=== PATIENT | female | born 1980 | race Caucasian/White ===

== ENCOUNTER 2021-08-13 13:22 | Inpatient (IN) ==
[2021-08-13] MEDS ORDERED: LORazepam 1 MG/2 ML VIAL IV STA ×2 (13:28→13:57)
[2021-08-13] MEDS ORDERED: LORazepam 2 MG/4 ML VIAL ONE (13:30)
[2021-08-13] MEDS ORDERED: DC ALL ANTICOAGULANTS STA (13:33)
[2021-08-13] MEDS ORDERED: PRIMARY PLUMSET, PE LINED TUBING, 113 IN, NON-DEHP (2260-0500) IV STA (13:33)
[2021-08-13] MEDS ORDERED: SODIUM CHLORIDE 0.9% 50 ML BAG IV STA (13:33)
[2021-08-13] MEDS ORDERED: ALTEPLASE, RECOMBINANT 100 MG in EMPTY BAG 0 ML IV STA (13:33)
[2021-08-13] MEDS ORDERED: RAPID SEQUENCE INDUCTION BAG ONE ×2 (13:35→14:57)
[2021-08-13] MEDS ORDERED: MoRPHine SULFATE 10 MG/ML CARP/VIAL ONE (13:43)
--- NOTE | 2021-08-13 13:47 | XRay Report ---
SINGLE VIEW CHEST CLINICAL HISTORY: Dyspnea. FINDINGS: An AP, portable, upright chest radiograph is compared to study dated 08/30/2008. The cardio mediastinal silhouette is unremarkable. The lungs and pleural spaces are clear. No pneumothorax is se en. The bony thorax is grossly intact. IMPRESSION: No active disease in the chest. ACT 112: Negative or not required by law. Electronically signed by: Dion Rojas M.D. 08/13/2021 1:46 PM
[2021-08-13] MEDS ORDERED: ALTEPLASE BOLUS IV ONE (13:48)
[2021-08-13] MEDS ORDERED: ICU PROTOCOL FOR HYPERGLYCEMIA PRN (13:55)
[2021-08-13] MEDS ORDERED: fentaNYL citrate 100 MCG/2 ML VIAL IV STA ×2 (13:57→14:16)
[2021-08-13] MEDS ORDERED: NORMOSOL-R 1,000 ML IV SCH (14:00)
--- NOTE | 2021-08-13 14:01 | Emergency Department Note ---
Impression & Plan Acute respiratory distress, Pulmonary emboli, DVT (deep venous thrombosis), Hypoxia, Tachycardia ED Provider Note NAME: HOLDEN SARABIA AGE: 40 SEX: F : 1980 ARRIVES VIA: Ambulance INFORMANT: [Patient][ems, family] ED PROVIDER(S): [Dion Cm MD] CHIEF COMPLAINT: Short of breath HISTORY OF PRESENT ILLNESS: The patient is a 40-year-old female who presents in respiratory distress. She suddenly, around 30 or so minutes ago became very short of breath. This occurred when she was in the shower. The patient is on control pills and just returned yesterday from [place]. She drove. Patient was experiencing some left lower leg pain today before her sudden shortness of breath. The patient has been in baseline health. She has no heart disease or lung disease. She has never had a DVT or PE. She has not noticed fever, cough or congestion. As per EMS, the patient's O2 saturation was in the 70s despite facemask O2. No further history obtainable as the patient is in quite a bit of distress. REVIEW OF SYSTEMS: Unobtainable given her distress PMHx/PSHx: See Below SOCIAL HISTORY: See Below. PHYSICAL EXAM: GENERAL: Patient is in significant respiratory distress. Anxious. HEENT: No acute trauma, normocephalic atraumatic, mucous membranes moist, no nasal congestion, no scleral icterus. NECK: No stridor, no adenopathy, no meningismus, trachea is midline. LUNGS: Increased respiratory rate, significant respiratory distress noted. Lung sounds are clear, lung sounds are equal, no wheezing or rhonchi. HEART: Tachycardic, regular rhythm, no murmurs. ABDOMEN: Soft, nontender, bowel sounds positive, no hernias, no peritonitis. EXTREMITIES: Mild bilateral pedal edema, full range of motion of all the joints without pain or difficulty, no signs for acute trauma. NEUROLOGIC: Oriented x 3, no acute motor or sensory deficits, no focal weakness. SKIN: No rash, no jaundice, moderate diaphoresis. Pale. DIFFERENTIAL DIAGNOSIS: Reactive airway disease, COVID-19, pneumonia, pneumothorax, COPD, CHF, infection, cardiac ischemia, pulmonary embolism, DVT, dysrhythmia, bronchitis, musculoskeletal, gastrointestinal, as well as other pathologies. EMERGENCY DEPARTMENT COURSE/PROCEDURES: ECG: Indication was shortness of breath. The ECG shows a sinus tachycardia with a rate of 144. There is diffuse ST depression and some T wave flattening and inversion. There is an incomplete right bundle branch block noted. No ST elevation, no PVCs. The QTc is 424. Continuous Cardiac Monitoring: An order was placed for continuous cardiac monitoring. The monitor shows a rate of 152 with sinus tachycardia. Critical Care Note: I have personally spent 67 minutes of critical care time in the direct management of this patient. This includes bedside care, interpretation of diagnostic studies, and testing, discussion with consultants, patient, and family members, and other required patient management activities. This 67 minutes is in excess of all separately billable procedures. MEDICAL DECISION MAKING: There is a moderate leukocytosis which could be consistent with infection or just the stress of her presentation. There was a normal hemoglobin and platelet count. CO2 was somewhat low, likely from hyperventilation. Creatinine was 1.38, mildly elevated. No worrisome liver enzyme elevation. ECG showed a sinus tachycardia with diffuse ST and T wave change. No ST elevation. Cardiac troponin testing x1 is elevated consistent with cardiac strain/injury. Covid testing returned negative. Chest x-ray did not show CHF, pneumonia or pneumothorax. Bilateral lower extremity ultrasound showed a left leg DVT. The patient presented in marked respiratory distress. Based on her history, based on her exam, I was concerned for massive pulmonary embolus. The patient was unable to undergo any testing to confirm PE. I quickly discussed the case with the bottom sprayer on-call. The decision was made to administer IV TPA over 2 hours. The TPA was ordered and given. The patient was quite anxious. She responded nicely to IV Ativan, a total of 2 mg was given. She received IV fentanyl, 100 mcg in total. With the administration of the Ativan and fentanyl, her tachypnea improved and she seemed more comfortable. She was initially ordered for BiPAP however, she could not tolerate the mask. She was eventually just maintained on facemask O2 supplementation. The patient was ordered for IV saline, 1 L. The patient has made significant improvement with the above treatment. Her color has improved. Her heart rate has decreased. She is less short of breath and looks much more comfortable. She is much more relaxed. The patient is being transferred to the ICU. I did speak with her, her family, her boyfriend about my concerns and findings. They are aware of the need for the TPA and the need for hospitalization. I did speak with the on-call hospitalist. Case management was involved. Past Med/Surg History Medical History Depression Multiple renal calculi UTI (urinary tract infection) Surgical History H/O lithotripsy H/O wisdom tooth extraction Family History (Updated 08/13/21 @ 14:54 by Naina Beckman PA-C) Other Diabetes Social History Smoking Status: Former smoker Smoking End Date: 2010; Second Hand Exposure: Yes; Hx Alcohol Use: Yes Alcohol type: wine and hard liquor Hx Substance Use: No Preferred Language: Lithuanian Communication Ability: Effective Plant Anatomy Teacher Required: No Beliefs That Will Affect Care: None Current Living Situation: Significant Other Other Information That Helps Us Care for You: No Feels Safe at Home: Yes Safety Concerns: Feels Safe At This Time Allergies Allergies Allergy/AdvReac Type Severity Reaction Status Date / Time morphine Allergy Rash Verified 08/13/21 14:29 Home Meds Home Medications Medication Instructions Recorded Confirmed etonogestrel 0.12 mg-ethinyl 1 vag ring VAGINAL UD 08/13/21 08/13/21 estradiol 0.015 mg/24 hr vaginal ring Results & Data (ED) Vital Signs Vital Signs - 24 hr 08/13/21 13:26 08/13/21 13:27 08/13/21 13:30 Pulse Rate 151 H 155 H 154 H Pulse Rate from SpO2 Sensor 160 H Respiratory Rate 40 H Respiratory Effort / Characteristics Labored Respiratory Depth Retractive Respiratory Pattern Tachypnea Pulse Oximetry 81 L Oxygen Delivery Method Non-rebreather Oxygen Flow Rate 15 Fraction of Inspired Oxygen Sepsis New/Unexplained Change in Mental Status N/A Sepsis Action Taken by Nursing No Action Required 08/13/21 13:35 08/13/21 13:40 08/13/21 13:50 Pulse Rate 145 H 153 H 146 H Pulse Rate from SpO2 Sensor 153 H 122 H Respiratory Rate 38 H 33 H Respiratory Effort / Characteristics Spontaneous Accessory Muscle Use Labored Short of Breath Respiratory Depth Respiratory Pattern Pulse Oximetry 98 85 L 85 L Oxygen Delivery Method Non-rebreather Oxygen Flow Rate Fraction of Inspired Oxygen 100 Sepsis New/Unexplained Change in Mental Status Sepsis Action Taken by Nursing 08/13/21 14:00 08/13/21 14:10 Pulse Rate 147 H 144 H Pulse Rate from SpO2 Sensor 148 H 144 H Respiratory Rate 30 H 34 H Respiratory Effort / Characteristics Respiratory Depth Respiratory Pattern Pulse Oximetry 97 89 L Oxygen Delivery Method Oxygen Flow Rate Fraction of Inspired Oxygen Sepsis New/Unexplained Change in Mental Status Sepsis Action Taken by [facility] Medications Current Medication List: was personally reviewed by me Laboratory Data Attestation: I reviewed the patient's lab results. Result diagrams: 08/13/21 13:15 08/13/21 13:15 Lab Results 08/13/21 08/13/21 08/13/21 Range/Units 13:15 13:15 13:15 WBC 14.93 H (4.8-10.8) K/uL RBC 4.29 (4.2-5.4) M/uL Hgb 13.4 (12.0-16.0) g/dL Hct 40.8 (37-47) % MCV 95.1 (80-100) fL MCH 31.2 (25-34) pg MCHC 32.8 (32-36) g/dL RDW Std Deviation 47.8 H (36.4-46.3) fL RDW Coeff of José Luis 13.7 (11.5-14.5) % Plt Count 272 (130-400) K/uL MPV 9.9 (7.4-10.4) fL PT Cancelled INR Cancelled APTT Cancelled PTT Ratio Cancelled Sodium 139 (136-145) mmol/L Potassium 3.5 (3.5-5.1) mmol/L Chloride 105 (98-107) mmol/L Carbon Dioxide 19 L (21-32) mmol/L Anion Gap 15.0 H (3-11) BUN 11 (7-18) mg/dl Creatinine 1.38 H (0.6-1.2) mg/dl Est Cr Clr Drug Dosing 74.1 ml/min Est GFR ( Amer) 56.1 ml/min Est GFR (Non-Af Amer) 48.4 ml/min BUN/Creatinine Ratio 7.6 L (10-20) Glucose 213 H (70-99) mg/dl Calcium 8.7 (8.5-10.1) mg/dl Magnesium 2.2 (1.8-2.4) mg/dl Total Bilirubin 0.5 (0.2-1) mg/dl AST 10 L (15-37) U/L ALT 13 (12-78) U/L Alkaline Phosphatase 83 (45-117) U/L Troponin I 0.443 H* (0-0.045) ng/ml Total Protein 7.8 (6.4-8.2) gm/dl Albumin 2.9 L (3.4-5.0) gm/dl Globulin 4.9 H (2.5-4.0) gm/dl Albumin/Globulin Ratio 0.6 L (0.9-2) Administered Medications Discontinued Medications Fentanyl Citrate (Fentanyl Citrate 100 Mcg/2 Ml Vial) 50 mcg IV NOW STA Stop: 08/13/21 13:58 Last Admin: 08/13/21 13:47 Dose: 50 mcg Documented by: [id number] Fentanyl Citrate (Fentanyl Citrate 100 Mcg/2 Ml Vial) 50 mcg IV NOW STA Stop: 08/13/21 14:17 Last Admin: 08/13/21 13:55 Dose: 50 mcg Documented by: [id number] Alteplase, Recombinant 100 mg/ (EMPTY BAG) 100 mls @ 50 mls/hr IV NOW STA; Protocol Stop: 08/13/21 15:32 Last Admin: 08/13/21 13:48 Dose: 50 mls/hr Documented by: [id number] Cosigned by: [id number] Lorazepam (Ativan) 1 mg in 2 mls @ 2 mls/min IV NOW STA Stop: 08/13/21 13:29 Last Admin: 08/13/21 13:40 Dose: 1 mls/min Documented by: [id number] Lorazepam (Ativan) 1 mg in 2 mls @ 2 mls/min IV NOW STA Stop: 08/13/21 13:58 Last Admin: 08/13/21 14:50 Dose: Not Given Documented by: [id number] Parenteral Electrolytes (Normosol-R) 1,000 mls @ 80 mls/hr IV .[id number] [facility] Stop: 09/12/21 13:59 Last Admin: 08/13/21 16:15 Dose: Not Given Documented by: [id number] Sodium Chloride (Nss 1000ml) 1,000 mls @ 999 mls/hr IV .[id number] ONE Stop: 08/13/21 15:13 Last Admin: 08/13/21 16:16 Dose: 999 mls/hr Documented by: [id number] Lorazepam (Lorazepam 2 Mg/4 Ml Vial) Confirm Administered Dose 2 mg .ROUTE .STK-MED ONE Stop: 08/13/21 13:31 Last Increment: 08/13/21 13:51 Dose: 1 mg Documented by: [id number] Miscellaneous (Rapid Sequence Induction Bag) Confirm Administered Dose 1 ea .ROUTE .STK-MED ONE Stop: 08/13/21 13:36 Last Admin: 08/13/21 14:49 Dose: Not Given Documented by: [id number] Miscellaneous (Rapid Sequence Induction Bag) Confirm Administered Dose 1 ea .ROUTE .STK-MED ONE Stop: 08/13/21 14:58 Last Admin: 08/13/21 16:16 Dose: Not Given Documented by: [id number] Miscellaneous Information (Dc All Anticoagulants ) 1 ea N/A NOW STA Stop: 08/13/21 13:34 Last Admin: 08/13/21 14:48 Dose: 1 ea Documented by: [id number] Morphine Sulfate (Morphine Sulfate 10 Mg/Ml Carp/Vial) Confirm Administered Dose 10 mg .ROUTE .STK-MED ONE Stop: 08/13/21 13:44 Last Admin: 08/13/21 13:59 Dose: Not Given Documented by: [id number] Sodium Chloride (Sodium Chloride 0.9% 50 Ml Bag) 50 ml IV NOW STA Stop: 08/13/21 13:34 Last Admin: 08/13/21 14:00 Dose: 50 ml Documented by: [id number] Imaging Data Radiologist's Impression: Venous Doppler Study 08/13/21 00:00 ULTRASOUND BILATERAL LOWER EXTREMITY VENOUS CLINICAL HISTORY: Dyspnea. Leg pain COMPARISON STUDY: No priors. TECHNIQUE: Real-time, grayscale, and color Doppler sonography of the deep veins of the right and left lower extremity was performed from the inguinal crease to the popliteal fossa. Compression and augmentation were utilized. The calf vessels were not assessed due to patient instability. FINDINGS: Right lower extremity: There is no sonographic evidence of above knee deep venous thrombosis in the right lower extremity. The common femoral, superficial femoral, and popliteal veins are patent and normally compressible. Left lower extremity: Occlusive deep venous thrombosis is seen within the distal superficial femoral vein and the popliteal vein. The common femoral vein and the proximal to mid portions of the superficial femoral vein are patent and normally compressible. The profunda femoris vein at the junction with the common femoral vein is clear. IMPRESSION: 1. There is occlusive deep venous thrombosis identified in the left lower extremity within the distal superficial femoral and popliteal veins. 2. No above knee deep venous thrombosis is seen in the right lower extremity. 3. The calf vessels could not be assessed due to patient instability. ACT 112: Negative or not required by law. Electronically signed by: Dion Rojas M.D. 08/13/2021 2:41 PM Chest X-Ray 08/13/21 13:42 SINGLE VIEW CHEST CLINICAL HISTORY: Dyspnea. FINDINGS: An AP, portable, upright chest radiograph is compared to study dated 08/30/2008. The cardiomediastinal silhouette is unremarkable. The lungs and pleural spaces are clear. No pneumothorax is seen. The bony thorax is grossly intact. IMPRESSION: No active disease in the chest. ACT 112: Negative or not required by law. Electronically signed by: Dion Rojas M.D. 08/13/2021 1:46 PM Discharge Plan Visit Data Chief Complaint: Respiratory Distress ED Provider: Dion Cm Discharge Problem: Acute respiratory distress, Pulmonary emboli, DVT (deep venous thrombosis), Hypoxia, Tachycardia Patient Disposition: Admitted As Inpatient Condition: Serious Discharge Instructions Interventions: ED Discharge Assessment Last Done: 08/13/21 15:00
--- NOTE | 2021-08-13 14:08 | Critical Care Consultation ---
Date of Consultation August 13, 2021 Assessment & Plan (1) Acute hypoxemic respiratory failure: Reason Critically Ill: 40-year-old female with respiratory distress from presumptive pulmonary embolism PLAN: Resp: Acute hypoxic respiratory failure -Improved status post 100 mg TPA -Echo pending -Bilateral venous duplex ultrasound CV: Tachycardia -Compensatory mechanism will not treat at this time Fluids/Renal: Electrolyte protocol ID: COVID-19 screen pending GI/Nutrition: Obesity: BMI 43 Heme: Status post TPA -Heparin per protocol DVT prophylaxis: Heparin infusion Endocrine: ICU hyperglycemia protocol Vascular access: Peripheral IVs Code Status: Full code Disposition: ICU (2) Obesity, Class III, BMI 40-49.9 (morbid obesity): Supervising Physician Co-Signing Physician Notes I have personally spent 40 minutes of critical care time in the direct management of this patient. This is a life/limb threatening event. This includes time spent evaluating patient, direct bedside care, chart review, placing orders, interpretation of diagnostic studies, discussion with consultants, patient, and/or family members regarding treatment decisions, as well as other required patient management activities. This time is exclusive of all separately billable procedures, and teaching time and separate from and in addition to any other critical care service time. History of Present Illness Reason for Consultation: Respiratory distress Requesting Physician: Dion Cm MD Attending Physician: Grey bellamy MD History of Present Illness History is obtained from emergency medicine provider given patient extremitas. patient is a 40-year-old female with a reported history of oral control pills who presents with acute shortness of breath. There is no history of DVT however the patient has recently returned from the [place], had lower leg swelling and pain, chest x-ray was reported as normal and was profoundly tachycardic and hypoxic on clinical examination. 100 mg of TPA was administered in the emergency department. Allergies Allergy/AdvReac Type Severity Reaction Status Date / Time morphine Allergy Rash Verified 07/09/18 04:00 Home Medications Medication Instructions Recorded Confirmed Type ciprofloxacin HCl 500 mg tablet 500 mg PO BID #14 tab 07/09/18 Rx hydrocodone 5 mg-acetaminophen 325 1 tab PO Q6H PRN #20 tab 07/09/18 Rx mg tablet norgestimate 0.25 mg-ethinyl 1 tab PO DAILY 07/09/18 07/09/18 History estradiol 35 mcg tablet (Ortho-Cyclen (28)) Patient History Medical History Multiple renal calculi UTI (urinary tract infection) Family History Other No significant family history Social History Smoking Status: Never smoker Feels Safe at Home: Yes Physical Exam Physical Exam: General: Alert. In obvious extremitas. Skin: Warm, diaphoretic, Head: Atraumatic Ears, nose, mouth and throat: airway patent Cardiovascular: Tachycardic Respiratory: Obvious respiratory distress Gastrointestinal: Non distended Musculoskeletal: No deformity Results & Data Results & Data ([facility]) Vital Signs (Past 12 Hours) Vital Signs Pulse Resp 08/13/21 13:26 151 H 40 H Laboratory Results 08/13/21 08/13/21 08/13/21 Range/Units 13:15 13:15 13:15 WBC 14.93 H (4.8-10.8) K/uL RBC 4.29 (4.2-5.4) M/uL Hgb 13.4 (12.0-16.0) g/dL Hct 40.8 (37-47) % MCV 95.1 (80-100) fL MCH 31.2 (25-34) pg MCHC 32.8 (32-36) g/dL RDW Std Deviation 47.8 H (36.4-46.3) fL RDW Coeff of José Luis 13.7 (11.5-14.5) % Plt Count 272 (130-400) K/uL MPV 9.9 (7.4-10.4) fL PT Cancelled INR Cancelled APTT Cancelled PTT Ratio Cancelled Sodium Pending Potassium Pending Chloride Pending Carbon Dioxide Pending Anion Gap Pending BUN Pending Creatinine Pending Est Cr Clr Drug Dosing Pending Est GFR ( Amer) Pending Est GFR (Non-Af Amer) Pending BUN/Creatinine Ratio Pending Glucose Pending Calcium Pending Magnesium Pending Total Bilirubin Pending AST Pending ALT Pending Alkaline Phosphatase Pending Troponin I Pending Total Protein Pending Albumin Pending Globulin Pending Albumin/Globulin Ratio Pending Coding Level of Care Code Critical Care 1st 30-74 mins Diagnoses Acute hypoxemic respiratory failure J96.01 Obesity, Class III, BMI 40-49.9 (morbid obesity) E66.01
[2021-08-13] MEDS ORDERED: SODIUM CHLORIDE 0.9% 1000ML 1,000 ML IV ONE (14:13)
[2021-08-13 14:15] LABS: Hematocrit (blood only) 40.8 % (37-47); Hemoglobin 13.4 g/dL (12.0-16.0); Mean Corpuscular Hemoglobin 31.2 pg (25-34); Mean Corpuscular Hgb Conc 32.8 g/dL (32-36); Mean Corpuscular Volume 95.1 fL (80-100); Mean Platelet Volume 9.9 fL (7.4-10.4); Platelet Count 272 K/uL (130-400); RDW Coefficient of Variation 13.7 % (11.5-14.5); RDW Standard Deviation 47.8 fL (36.4-46.3); Red Blood Count 4.29 M/uL (4.2-5.4); White Blood Count 14.93 K/uL (4.8-10.8)
[2021-08-13 14:30] LABS: Albumin Level 2.9 gm/dl (3.4-5.0); BUN Creatinine Ratio 7.6 (10-20); Calcium 8.7 mg/dl (8.5-10.1); Creatinine Clr Calc Pharmacy 74.1 ml/min; Est GFR (African American) 56.1 ml/min; Est GFR (Non-African American) 48.4 ml/min; Magnesium 2.2 mg/dl (1.8-2.4); Potassium 3.5 mmol/L (3.5-5.1)
--- NOTE | 2021-08-13 14:34 | History & Physical Report ---
Date of Service August 13, 2021 Assessment & Plan (1) Acute hypoxemic respiratory failure: (2) Pulmonary emboli: (3) DVT (deep venous thrombosis): Plan: This is a 40yo F with a PMH of depression, recurrent kidney stones who presents with sudden onset SOB earlier this afternoon. Respiratory distress from presumptive pulmonary embolism Developed LLE pain early this morning and then acute SOB following 10 hr car ride. Patient is obese, using control. No h/o DVT/PE in the past In ED, was hypoxic requiring 15 L non-rebreather and tachycardic at 150 BLE venous doppler with occlusive deep venous thrombosis identified in the left lower extremity within the distal superficial femoral and popliteal veins 100 mg of TPA was administered in the emergency department CTA to be obtained when patient more stable. Echo pending Patient was evaluated by Dr. Perdomo in the ER and will be admitted to ICU for further care Continue supportive O2 DVT Ppx: Heparin infusion Code status: FULL PCP: Greg Dispo: Admitted to ICU Patient seen in collaboration with Dr. Miramontes. Please see addendum. History of Present Illness Chief Complaint: respiratory distress Primary Care Provider: Lizette Garza DO This is a 40yo F with a PMH of recurrent kidney stones who presents with sudden onset SOB earlier this afternoon. Patient drove back from the [employer] yesterday which was a [address] This morning, she developed and had lower left leg swelling and pain. A few hours later today she developed acute shortness of breath, necessitating EMS transfer to ED. In ED, was hypoxic requiring 15 L non-rebreather. Did not tolerate bipap. Was tachycardic at 150. 100 mg of TPA was administered in the emergency department. Patient was evaluated by Dr. Perdomo in the ER and will be admitted to ICU for further care. Patient is on control. Denies any known history of DVT/PE or clotting disorder. Evaluated in 109. Feeling less short of breath since arrival. Saturating at 100% on 15 L/min non-rebreather. Denies fever, chills, headache, lightheadedness, visual changes, sore throat, cough, chest pain, abdominal pain, nausea, vomiting, dysuria, constipation or diarrhea. Allergies Allergy/AdvReac Type Severity Reaction Status Date / Time morphine Allergy Rash Verified 08/13/21 14:29 Home Medications Medication Instructions Recorded Confirmed Type etonogestrel 0.12 mg-ethinyl 1 vag ring VAGINAL UD 08/13/21 08/13/21 History estradiol 0.015 mg/24 hr vaginal ring Past Med/Surg History Medical History Depression Multiple renal calculi UTI (urinary tract infection) Surgical History H/O lithotripsy H/O wisdom tooth extraction Family History (Updated 08/13/21 @ 14:54 by Naina Beckman PA-C) Other Diabetes Social History Smoking Status: Former smoker Smoking End Date: 2010; Second Hand Exposure: Yes; Hx Alcohol Use: Yes Alcohol type: wine and hard liquor Hx Substance Use: No Preferred Language: Mauritanian Communication Ability: Effective Brand Designer Required: No Beliefs That Will Affect Care: None Current Living Situation: Significant Other Other Information That Helps Us Care for You: No Feels Safe at Home: Yes Safety Concerns: Feels Safe At This Time Assistive Devices: None Review of Systems Review of Systems: At least ten systems reviewed and negative except as noted in the HPI. Physical Exam Physical Exam: General Appearance: WD/WN, vitals as above, NAD, sitting up in bed, conversing easily, wearing non-rebreather Head: normocephalic, atraumatic Eyes: normal inspection, PERRL, conjunctivae normal, anicteric sclerae ENT: external ear and nose normal, oropharynx normal Neck: normal visual inspection, trachea midline, no thyromegaly Respiratory: normal respiratory effort, lungs clear to auscultation, no wheeze, rales, rhonchi. No accessory muscle use Cardiovascular: tachycardic rate, rhythm, no murmur, normal peripheral pulses, no BLE edema. Vessels: no JVD Chest: normal inspection of chest Abdomen/GI: normal bowel sounds, soft, nontender, no hepatosplenomegaly Extremities/Musculoskeletal: + LLE TTP. No cyanosis or clubbing, extremities motor strength 5/5 Neurologic: PERRL, EOMI, accommodation nl, no face palsy, no dysarthria, CN's II-XI intact bilaterally and moves all extremities Psychiatric: A+Ox3, euthymic affect Skin: no rashes, normal color, warm/dry Results & Data Results & Data ([facility]) Vital Signs (Past 12 Hours) Vital Signs Pulse Resp 08/13/21 13:26 151 H 40 H Laboratory Results Short CBC 08/13/21 Range/Units 13:15 WBC 14.93 H (4.8-10.8) K/uL Hgb 13.4 (12.0-16.0) g/dL Hct 40.8 (37-47) % Plt Count 272 (130-400) K/uL BMP 08/13/21 13:15 Sodium 139 Potassium 3.5 Chloride 105 Carbon Dioxide 19 L BUN 11 Creatinine 1.38 H Glucose 213 H Calcium 8.7 Cardiac Enzymes 08/13/21 Range/Units 13:15 Troponin I 0.443 H* (0-0.045) ng/ml Liver Function 08/13/21 Range/Units 13:15 Total Bilirubin 0.5 (0.2-1) mg/dl AST 10 L (15-37) U/L ALT 13 (12-78) U/L Alkaline Phosphatase 83 (45-117) U/L Albumin 2.9 L (3.4-5.0) gm/dl Diagnostic Findings Venous Doppler Study 08/13/21 00:00 ULTRASOUND BILATERAL LOWER EXTREMITY VENOUS CLINICAL HISTORY: Dyspnea. Leg pain COMPARISON STUDY: No priors. TECHNIQUE: Real-time, grayscale, and color Doppler sonography of the deep veins of the right and left lower extremity was performed from the inguinal crease to the popliteal fossa. Compression and augmentation were utilized. The calf vessels were not assessed due to patient instability. FINDINGS: Right lower extremity: There is no sonographic evidence of above knee deep venou s thrombosis in the right lower extremity. The common femoral, superficial femoral, and popliteal veins are patent and normally compressible. Left lower extremity: Occlusive deep venous thrombosis is seen within the distal superficial femoral vein and the popliteal vein. The common femoral vein and the proximal to mid portions of the superficial femoral vein are patent and normally compressible. The profunda femoris vein at the junction with the common femoral vein is clear. IMPRESSION: 1. There is occlusive deep venous thrombosis identified in the left lower extremity within the distal superficial femoral and popliteal veins. 2. No above knee deep venous thrombosis is seen in the right lower extremity. 3. The calf vessels could not be assessed due to patient instability. ACT 112: Negative or not required by law. Electronically signed by: Dion Rojas M.D. 08/13/2021 2:41 PM Chest X-Ray 08/13/21 13:42 SINGLE VIEW CHEST CLINICAL HISTORY: Dyspnea. FINDINGS: An AP, portable, upright chest radiograph is compared to study dated 08/30/2008. The cardiomediastinal silhouette is unremarkable. The lungs and pleural spaces are clear. No pneumothorax is seen. The bony thorax is grossly intact. IMPRESSION: No active disease in the chest. ACT 112: Negative or not required by law. Electronically signed by: Dion Rojas M.D. 08/13/2021 1:46 PM Code Status & VTE Plan VTE Prophylaxis Plan VTE Prophylaxis will be ordered: Yes (1) DVT (deep venous thrombosis) Affected thrombotic vein of extremity: unspecified vein of extremity C hronicity: acute DVT location: lower extremity Laterality: left Qualified Code(s): I82.402 - Acute embolism and thrombosis of unspecified deep veins of left lower extremity (2) Pulmonary emboli Acute cor pulmonale presence: with acute cor pulmonale Chronicity: acute Pulmonary embolism type: unspecified Qualified Code(s): I26.09 - Other pulmonary embolism with acute cor pulmonale
[2021-08-13 14:42] LABS: Albumin Globulin Ratio 0.6 (0.9-2); Bilirubin,Total 0.5 mg/dl (0.2-1); Globulin 4.9 gm/dl (2.5-4.0); Total Protein 7.8 gm/dl (6.4-8.2); Troponin I 0.443 ng/ml (0-0.045)
--- NOTE | 2021-08-13 14:43 | Ultrasound Report ---
ULTRASOUND BILATERAL LOWER EXTREMITY VENOUS CLINICAL HISTORY: Dyspnea. Leg pain COMPARISON STUDY: No priors. TECHNIQUE: Real-time, grayscale, and color Doppler sonography of the deep veins of the right and left lower extremity was performed from the inguinal crease to the popliteal fossa. Compression and augme ntation were utilized. The calf vessels were not assessed due to patient instability. FINDINGS: Right lower extremity: There is no sonographic evidence of above knee deep venous thrombosis in the r ight lower extremity. The common femoral, superficial femoral, and popliteal veins are patent and nor lucille compressible. Left lower extremity: Occlusive deep venous thrombosis is seen within the distal superficial femoral vein and the popliteal vein. The common femoral vein and the proximal to mid portions of the superfic ial femoral vein are patent and normally compressible. The profunda femoris vein at the junction wit h the common femoral vein is clear. IMPRESSION: 1. There is occlusive deep venous thrombosis identified in the left lower extremity within the distal superficial femoral and popliteal veins. 2. No above knee deep venous thrombosis is seen in the right lower extremity. 3. The calf vessels could not be assessed due to patient instability. ACT 112: Negative or not required by law. Electronically signed by: Dion Rojas M.D. 08/13/2021 2:41 PM
[2021-08-13] MEDS ORDERED: HEPARIN 25000 UNIT/500 ML D5W IV ONE ×2 (16:12→16:26)
[2021-08-13 17:58] LABS: Partial Thromboplastin Ratio 1.9
[2021-08-13 18:28] LABS: Partial Thromboplastin Time 49.6 Seconds (21.0-31.0)
[2021-08-13] MEDS: HEPARIN SODIUM/DEXTROSE 25,000 UNITS/500 ML BAG IV SCH (19:13)
[2021-08-13] MEDS: Heparin IV Adult Wt-Based Standard *NO* Bolus Protocol IV SCH ×3 (20:11→20:20)
[2021-08-13] MEDS: ICU ELECTROLYTE REPLACEMENT PROTOCOL SCH (20:11)
[2021-08-13 23:06] LABS: Partial Thromboplastin Ratio 2.2
[2021-08-13 23:09] LABS: Partial Thromboplastin Time 58.1 Seconds (21.0-31.0)
[2021-08-14 06:13] LABS: BUN Creatinine Ratio 11.6 (10-20); Creatinine Clr Calc Pharmacy 97.2 ml/min; Est GFR (Non-African American) 67.3 ml/min; Magnesium 2.6 mg/dl (1.8-2.4); Potassium 3.5 mmol/L (3.5-5.1)
[2021-08-14 06:14] LABS: Phosphorus 2.8 mg/dl (2.5-4.9)
[2021-08-14 06:16] LABS: Partial Thromboplastin Ratio 1.8
[2021-08-14 06:21] LABS: Partial Thromboplastin Time 46.4 Seconds (21.0-31.0)
[2021-08-14] MEDS: ICU ELECTROLYTE REPLACEMENT PROTOCOL SCH (06:29)
[2021-08-14] MEDS ORDERED: POTASSIUM CHLORIDE CRTAB 20 MEQ TABCR PO STA (06:31)
--- NOTE | 2021-08-14 08:19 | Critical Care Progress Note ---
Date of Service August 14, 2021 Assessment & Plan (1) Pulmonary emboli: Plan: Reason Critically Ill: Diane is a 40-year-old female with a history of hormonal contraceptive use who presented to [facility] for evaluation of LLE pain/swelling and dyspnea that began after a 10 hour car ride, subsequently found to have occlusive DVTs in LLE and - based on her AHRF and symptoms - a presumed pulmonary embolism. She was treated with IV tPA, started at 1400 on 08/13, and remains in the ICU for hemodynamic and post-tPA neurologic monitoring. Neuro - [facility] ICU: Negative -- Neurologically in-tact and stable s/p tPA for PE. No acute needs. Cardiac - Tachycardia: Resolved. Compensatory in setting of pulmonary embolism. -- Continue telemetry monitoring upon transition out of the ICU. Elevated Troponin: -- Secondary to presumed pulmonary embolism/emboli, see below -- Trend Respiratory - Acute Hypoxic Respiratory Failure -- Secondary to presumed pulmonary emboli -- Resolved s/p tPA. See PE management below. Presumed Pulmonary Embolism/Emboli -- In setting of confirmed occlusive LLE DVTs with recent >10 hour car ride, active hormonal contraception, and obesity -- s/p tPA on 08/13, beginning around 1400 -- monitor in ICU until 1600 on 08/14. -- Symptomatically, much improved. No longer requiring O2 -- TTE completed. Await results. -- Ordered: CTA-Chest to evaluate emboli burden. -- Continue heparin gtt, per protocol -- Depending on burden of emboli/embolism on CTA, may require long-term/lifelong anticoagulation -- Contraceptive ring removed by patient. GI - Obesity - BMI 43. Continue counselling. No acute needs at this time. RENAL/LYTES - -- Previously with mild LG (BUN 11/Cr 1.38). Resolved s/p NSS. -- No significant electrolyte derangement. -- Replace lytes as needed. - -- No concerns at this time. ENDO - -- No acute needs. ICU hyperglycemia protocol. HEME - -- s/p tPA, now on heparin -- Monitor H&H ID - -- No concerns for infection at this point. INTEGUMENTARY - -- No acute concerns. LINES/IV ACCESS - PIVs intact. DVT PROPHYLAXIS - Therapeutic heparin. Thank you for allowing us to be part of this patient's care. Please refer to Dr. Gannon's documentation for any further recommendations. (2) DVT (deep venous thrombosis): (3) Hypoxia: (4) Tachycardia: (5) Acute hypoxemic respiratory failure: Plan: Patient seen and examined. EMR reviewed. Discussed with off going plant protection supervisor as well as with overnight critical care MARI and with the family practice resident. Patient was reviewed on multidisciplinary rounds as well. CT angiogram performed this morning did demonstrate PEs. She has had resolution of her hypoxemia and tachycardia. She feels well and is on room air currently. Continue heparin. Will observe 24 hours post TPA in the ICU at which point time she is eligible to transfer to the floor. Echocardiogram has been performed but the results are currently pending Given the significant clinical presentation, could make a case for lifelong anticoagulation. Alternatively, the patient could complete 6 months of anticoagulation and follow-up with hematology for testing for inherited and acquired thrombophilias. Would defer most testing at this point time other than genetic tests. Could consider factor V Leiden, prothrombin gene mutation, and lupus anticoagulant. If positive, would recommend lifelong anticoagulation unless significant contraindication existed. Patient can transfer to the floor on telemetry. Would recommend least 5 days of heparin therapy. Anticoagulation past that will depend on patient insurance and patient preference. DOAC or Coumadin would be appropriate We will sign off once the patient leaves the ICU. Feel free to contact us with questions or concerns. Admission and Anticipated Discharge Date Admission Date: August 13, 2021 Subjective Feeling much better this AM. Breathing easier, not short of breath. Leg pain on LEFT much improved. Chest tightness minimally present, but by comparison, much improved from prior. Good energy, appetite. No nausea. No double vision. No weakness, numbness, or tingling. Review of Systems Review of Systems: Constitutional: Denies fatigue, chills Eyes: Denies vision changes, double vision ENT: Denies facial pain Cardiovascular: Endorses mild, but much improved chest pressure. No palpitations. Respiratory: Denies shortness of breath, cough Gastrointestinal: Denies abdominal pain, nausea, vomiting Musculoskeletal: Denies weakness Neurological: Denies headache, numbness, tingling, focal weakness Physical Exam Physical Exam: General: Well appearing 40yoF who is lying back in her hospital bed, awake and relaxed, upon my arrival. NAD. HEENT: NCAT. Eyes - Sclera are white, anicteric, and without injection. PERRL. EOMs display full ROM bilaterally. Mouth - MMM with no tonsillar edema or exudates. N Cardiac: Normal rate and regular rhythm; S1 and S2 present with no murmurs, rubs, or gallops. No JVD. Pulmonary: Good respiratory effort with symmetric expansion of the chest. No use of accessory muscles. Lungs were clear to auscultation bilaterally with no crackles or wheezes. Abdominal: Normoactive bowel sounds. Abdomen was soft, nondistended, and non- tender to palpation Extremities: Upper and lower extremities are warm and well perfused. Radial and dorsalis pedis pulses were 2+ b/l. Trace pitting edema in the LEs bilaterally. No calf tenderness. Neuro: - Cranial Nerves: CN I, IX, and X - not assessed. II - PERRL. III/IV/ - EOMs WNL. No nystagmus. V - Facial sensation in tact in all three divisions; jaw opening WNL. VII - Patient is able to smile symmetrically and keep eyes close against resistance. VIII - Patient is able to hear finger snapping equally and appropriately. Patient is able to rotate head and shrug shoulders against resistance. XI - Soft palate raises equally and appropriately while saying "ah." XII - patient is able to stick out tongue and deviate from [id number] appropriately. - Motor: UE - Finger, wrist, elbow, and shoulder strength is 5/5 bilaterally. LE - Hip, knee, and ankle strength is 5/5 bilaterally. - Sensation: UE and LE sensation to light touch is grossly intact bilaterally. Results & Data Results & Data ([facility]) Vital Signs (Past 12 Hours) Vital Signs Temp Pulse Resp BP Pulse Ox 08/14/21 07:00 78 13 96 08/14/21 06:30 78 15 98 08/14/21 06:00 79 24 142/83 H 97 08/14/21 05:30 79 19 99 08/14/21 05:00 75 18 108/79 98 08/14/21 04:30 78 17 98 08/14/21 04:00 36.7 C 71 16 113/77 97 08/14/21 03:30 80 13 95 08/14/21 03:00 78 17 114/75 94 08/14/21 02:30 75 16 96 08/14/21 02:00 82 13 116/84 99 08/14/21 01:30 74 17 98 08/14/21 01:00 85 15 116/76 98 08/14/21 00:30 83 14 99 08/14/21 00:00 37 C 84 16 120/97 99 08/13/21 23:30 86 16 99 08/13/21 23:00 88 16 135/103 H 99 08/13/21 22:30 79 16 100 08/13/21 22:00 86 16 164/92 H 99 08/13/21 21:30 88 13 152/103 H 99 08/13/21 21:00 90 16 143/101 H 98 08/13/21 20:30 94 H 16 99 Resident Activity Tracking Resident Involvement: Resident Care Provided Care Provided: Adult Hospital Medicine (1) DVT (deep venous thrombosis) Affected thrombotic vein of extremity: unspecified vein of extremity Chronicity: acute DVT location: lower extremity Laterality: left Qualified Code(s): I82.402 - Acute embolism and thrombosis of unspecified deep veins of left lower extremity (2) Pulmonary emboli Acute cor pulmonale presence: with acute cor pulmonale Chronicity: acute Pulmonary embolism type: unspecified Qualified Code(s): I26.09 - Other pulmonary embolism with acute cor pulmonale
[2021-08-14] MEDS ORDERED: POTASSIUM CHLORIDE CRTAB 20 MEQ TABCR PO ONE (10:30)
[2021-08-14] MEDS ORDERED: OPTIRAY 320 125ml IV ONE (10:34)
[2021-08-14] MEDS: HEPARIN SODIUM/DEXTROSE 25,000 UNITS/500 ML BAG IV SCH (11:25)
--- NOTE | 2021-08-14 11:27 | CT Scan Report ---
CHEST CTA for PULMONARY ARTERIES CT DOSE: 709.22 mGy.cm HISTORY: Shortness of breath. Assess for pulmonary embolus. DVT. TECHNIQUE: Multiaxial CT images of the chest were performed following the intravenous administration of contrast to evaluate the pulmonary arteries. Maximal intensity projection images were also obtaine d. A dose lowering technique was utilized adhering to the principles of ALARA. COMPARISON STUDY: Abdomen and pelvis CT 07/09/2018. FINDINGS: Small hypodense focus within the central liver adjacent to the adams hepatis favors focal f at. Visualized spleen and adrenal glands are unremarkable. No pleural or pericardial effusions. Rosa l esophagus. No mediastinal or hilar lymphadenopathy. The heart is normal in size. No evidence for ri ght-sided heart strain. Normal caliber thoracic aorta with no evidence for a dissection. Faint defect s within multiple right lower lobe and right middle lobe segmental and subsegmental pulmonary arterie s consistent with pulmonary emboli. Small filling defect seen within the subsegmental branches of the left lower lobe consistent with additional pulmonary emboli. No fractures within the visualized osse ous structures. The central airways are patent. No pneumothorax. Mosaic attenuation within the lungs consistent with air trapping. This could be due to to small airways disease or the pulmonary emboli. Otherwise, no focal lung consolidations to suggest pneumonia. No pulmonary infarcts identified at thi s time. IMPRESSION: 1. Multiple bilateral pulmonary emboli as described above. 2. No evidence for right-sided heart strain. 3. Mosaic attenuation within the lungs consistent with air trapping. This could be due to to small ai rways disease or the pulmonary emboli. ACT 112: Negative or not required by law. Electronically signed by: José Miguel Calvert M.D. 08/14/2021 11:26 AM
--- NOTE | 2021-08-14 11:56 | Billing Data ---
Date of Service August 14, 2021 Coding Level of Care Code 68434 Subseq Hosp Care Lvl 3 Time Spent (min) 45
[2021-08-14] MEDS ORDERED: ALTEPLASE BOLUS IV ONE (13:48)
--- NOTE | 2021-08-14 14:06 | Electrocardiogram Report ---
Test Reason : Blood Pressure : / mmHG Vent. Rate : 144 BPM Atrial Rate : 144 BPM P-R Int : 116 ms QRS Dur : 098 ms QT Int : 274 ms P-R-T Axes : 044 014 -23 degrees QTc Int : 424 ms Sinus tachycardia Incomplete right bundle branch block Minimal voltage criteria for LVH, may be normal variant Marked ST abnormality, possible lateral subendocardial injury Abnormal ECG When compared with ECG of 21-MAR-2016 19:06, Significant changes have occurred Confirmed by Rajan Tatum ([id number]) on 08/14/2021 2:06:22 PM Referred By: REFERRED SELF Confirmed By:Rajan Tatum
--- NOTE | 2021-08-14 15:04 | XCELERA ---
[id number]
--- NOTE | 2021-08-14 16:54 | Hospitalist Progress Note ---
Date of Service August 14, 2021 Assessment & Plan (1) Acute hypoxemic respiratory failure: (2) Pulmonary emboli: (3) DVT (deep venous thrombosis): Plan: This is a 40yo F with a PMH of depression, recurrent kidney stones who presents with worsening SOB Mostly due to acute PE CTA chest showed multiple bilateral pulmonary emboli as described above. No evidence for right-sided heart strain. Doppler of LE showed occlusive deep venous thrombosis identified in the left lower extremity within the distal superficial femoral and popliteal veins. TPA was administered in the ER Pt was monitor in the ICU post TPA intervention Echo showed left ventricular systolic function is normal. No regional wall motion abnormality. Ejection fraction 55 to 60% Currently on IV heparin drip Patient will need outpatient hypercoagulable work-up Will transition to oral anticoagulant in am Will need to follow-up with her ASSISTANT BUYER to discuss about OCP change, but will hold it for now Saturating well on room air Clinically stable to transfer out of the ICU as per tennis racket repairer DVT Ppx: Heparin infusion Code status: FULL PCP: Greg Disposition Transfer to Medical surgery Admission and Anticipated Discharge Date Admission Date: August 13, 2021 Subjective Patient was seen and examined for follow-up shortness of breath Lying in bed with no acute distress facetime with family Patient said that she feels much better She saturating well on RA Denies any chest pain, palpitation, dizziness, shortness of breath. Review of Systems Review of Systems: All systems reviewed & are unremarkable except as noted in Subjective Physical Exam Physical Exam: General- No acute distress Head- atraumatic Eyes- PERRL, EOMI, ENT- oropharynx clear Neck- supple, no JVD Lungs- clear to auscultation Heart- regular rhythm; no murmur Abdomen- normal bowel sounds, soft, nontender Extremities- no calf tenderness Neuro- alert, oriented x 3; PERRL, EOMI; no facial palsy; no dysarthria Skin- warm & dry Results & Data Results & Data ([facility]) Vital Signs (Past 12 Hours) Vital Signs Temp Pulse Pulse Resp BP BP Pulse Ox 08/14/21 16:00 73 08/14/21 15:30 69 20 98 08/14/21 15:07 98 H 22 97 08/14/21 14:30 70 20 98 08/14/21 14:00 150/85 H 99 08/14/21 12:05 91 H 19 139/81 97 08/14/21 11:00 77 13 98 08/14/21 10:00 75 18 138/94 98 08/14/21 09:00 82 20 122/79 97 08/14/21 08:00 36.7 C 73 78 19 147/102 H 144/88 H 96 08/14/21 07:00 78 13 96 08/14/21 06:30 78 15 98 08/14/21 06:00 79 24 142/83 H 97 08/14/21 05:30 79 19 99 08/14/21 05:00 75 18 108/79 98 (1) DVT (deep venous thrombosis) Affected thrombotic vein of extremity: unspecified vein of extremity Chronicity: acute DVT location: lower extremity Laterality: left Qualified Code(s): I82.402 - Acute embolism and thrombosis of unspecified deep veins of left lower extremity (2) Pulmonary emboli Acute cor pulmonale presence: with acute cor pulmonale Chronicity: acute Pulmonary embolism type: unspecified Qualified Code(s): I26.09 - Other pulmonary embolism with acute cor pulmonale
[2021-08-15] MEDS ORDERED: BENZONATATE 100 MG CAPSULE PO PRN (00:56)
[2021-08-15] MEDS: HEPARIN SODIUM/DEXTROSE 25,000 UNITS/500 ML BAG IV SCH (04:13)
[2021-08-15 06:20] LABS: BUN Creatinine Ratio 11.1 (10-20); Calcium 8.5 mg/dl (8.5-10.1); Creatinine Clr Calc Pharmacy 94.3 ml/min; Est GFR (Non-African American) 67.3 ml/min; Magnesium 1.8 mg/dl (1.8-2.4); Partial Thromboplastin Ratio 1.7; Phosphorus 3.2 mg/dl (2.5-4.9); Potassium 3.8 mmol/L (3.5-5.1)
[2021-08-15 06:24] LABS: Partial Thromboplastin Time 45.8 Seconds (21.0-31.0)
[2021-08-15] MEDS: ICU ELECTROLYTE REPLACEMENT PROTOCOL SCH (07:23)
[2021-08-15 13:35] LABS: Partial Thromboplastin Ratio 1.7
[2021-08-15] MEDS ORDERED: ENOXAPARIN INJ 120 MG/0.8 ML SYR SQ SCH (15:00)
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
== END 2021-08-15 16:29 | disposition home or self-care (01) | DRG 175 ==
LOC: ED 13:22 → 1E 14:20
DX: F32.A Depression, unspecified; J96.01 Acute respiratory failure with hypoxia; Z68.41 Body mass index [BMI] 40.0-44.9, adult; N17.9 Acute kidney failure, unspecified; E66.01 Morbid (severe) obesity due to excess calories; R00.0 Tachycardia, unspecified; I26.99 Other pulmonary embolism without acute cor pulmonale; Z87.440 Personal history of urinary (tract) infections; D72.829 Elevated white blood cell count, unspecified; Z87.891 Personal history of nicotine dependence